=== PATIENT | male | born 2000 | race Caucasian/White ===

== ENCOUNTER 2021-07-08 19:51 | Emergency (ER) | payer OTHER, SELFPAY ==
[2021-07-08 20:02] VITALS: BP 116/68; PULSE 78; RESP 16; TEMP 37.3; O2SAT 98
--- NOTE | 2021-07-08 20:10 | ED.SKABFB ---
HPI - Skin/Abscess/Foreign Bdy General Stated complaint: Scabies Time Seen by Provider: 07/08/21 20:10 Source: patient and RN notes reviewed History of Present Illness HPI narrative: Patient is a 21-year-old male who presents the urgent care with his girlfriend with exposure to scabies. Patient states that the girlfriend lives with her sister who was recently diagnosed this evening with scabies. Patient and girlfriend do not show any signs. Do not have any complaints of bug bites or track schroeder from scabies. No other acute complaints. No acute distress noted. Patient aware of the plan of care. Some parts of this dictation were generated by voice recognition software and may contain typographical and/or grammatical inaccuracies. Related Data Allergies Allergy/AdvReac Type Severity Reaction Status Date / Time No Known Drug Allergies Allergy Unknown Verified 04/27/16 10:56 Review of Systems Review of Systems: CONSTITUTIONAL: Denies fever, chills, or sweats. EYES: Denies visual changes, redness, or discharge. ENT: Denies rhinorrhea, congestion, sore throat, or otalgia. CARDIOVASCULAR: Denies chest pain, palpitations, or edema. RESPIRATORY: Denies cough or dyspnea. GASTROINTESTINAL: Denies abdominal pain, nausea, vomiting, or diarrhea. GENITOURINARY: Denies dysuria or hematuria. SKIN: Denies rash or itching. MUSCULOSKELETAL: Denies back pain, joint pain, or myalgia. NEUROLOGIC: Denies headache, numbness, or weakness. All other systems reviewed are negative, except as documented in HPI. PMFSH Comments At the time of my signature, I reviewed and agree with the nursing past medical, surgical, social, and family history. There is no relevant family history pertinent to the patient complaint. Exam Narrative: GENERAL: This is a well-nourished, well-developed patient, in no apparent distress. HEAD: normocephalic, atraumatic. EYES: PERRL. Sclera clear/white. Vision is grossly intact. EARS: External ears normal NOSE: External nose normal with no obvious nasal discharge, nares without redness, no rhinorrhea. THROAT: Mucous membranes moist NECK: Neck supple CARDIOVASCULAR: Regular rate and rhythm without murmurs, gallops, or rubs. RESPIRATORY: Clear to auscultation. Breath sounds equal bilaterally. No wheezes, rales, or rhonchi. SKIN: warm, intact with no suspicious lesions or rash, good texture and turgor. NEURO: awake, alert, and oriented to person, place and time. There were no obvious focal neurologic abnormalities. EXTREMITIES: No clubbing, cyanosis, or edema. Course Course Level of Care: Express Care Visit Vital Signs Vital signs: Vital Signs Temperature 99.1 F 07/08/21 20:02 Pulse Rate 78 07/08/21 20:02 Respiratory Rate 16 07/08/21 20:02 Blood Pressure 116/68 07/08/21 20:02 Pulse Oximetry 98 07/08/21 20:02 Temperature 99.1 F 07/08/21 20:02 Pulse Rate 78 07/08/21 20:02 Respiratory Rate 16 07/08/21 20:02 Blood Pressure 116/68 07/08/21 20:02 Pulse Oximetry 98 07/08/21 20:02 Reviewed MDM - Skin/Abscess/Foreign Bdy MDM Narrative Medical decision making narrative: Considering you have no infection/infestation of scabies at this time?there is no preventative treatment. Permethrin 1% cream is known as Nix [id number] and if you do show any signs you may obtain that from [facility]. Most common signs will start around the belt line, near the ankles or in the webs of your fingers. If you have a complete infestation with tracks diffuse throughout the body, make sure you follow-up with your PCP for oral treatment. Critical Care Time Critical Care Time Critical Care Time: No Discharge Plan Discharge Clinical Impression: Exposure to scabies Patient Disposition: Home, Self-Care Condition: Stable Instructions: Antibiotic Form, Scabies (ED) Additional Instructions: Considering you have no infection/infestation of scabies at this time?there is no preventative yuridia
== END 2021-07-08 20:15 | disposition home or self-care (01) ==
PROVIDERS: Emergency Provider Nurse Practitioner Family
DX: Z20.7 Contact with and (suspected) exposure to pediculosis, acariasis and other infestations (principal)
CPT/HCPCS: 99202; G0463